=== PATIENT | male | born 1980 | race Caucasian/White ===

== ENCOUNTER 2021-06-17 05:03 | Emergency (ER) | payer OTHER ==
[2021-06-17 05:14] VITALS: RESP 18; TEMP 97.6
[2021-06-17] MEDS ORDERED: SODIUM CHLORIDE 0.9% 1,000 ML IV ONE (05:49)
[2021-06-17] MEDS ORDERED: SODIUM CHLORIDE 0.9% 1,000 ML IV STA (05:49)
[2021-06-17] MEDS ORDERED: LORazepam 2 MG/ML INJ IV STA (05:49)
[2021-06-17 06:27] LABS: Basophils # (A) 0.1 k/uL (0-0.2); Basophils % (A) 1 %; Eosinophils # (A) 0.3 k/uL (0-0.7); Eosinophils % (A) 3 %; HCT 47.9 % (39.0-53.0); HGB 16.1 gm/dL (13.0-17.5); Lymphocytes % (A) 19 %; MCH 31.8 pg (25.0-35.0); MCHC 33.6 g/dL (31.0-37.0); MCV 94.5 fL (80.0-100.0); Mean Platelet Volume 7.2; Monocytes # (A) 0.6 k/uL (0-1.0); Monocytes % (A) 5 %; Neutrophils # (A) 7.6 k/uL (1.3-7.7); Neutrophils % (A) 72 %; Platelet Count 346 k/uL (150-450); RBC 5.07 m/uL (4.30-5.90); RDW 12.3 % (11.5-15.5); WBC 10.6 k/uL (3.8-10.6)
[2021-06-17 06:49] LABS: ALT 43 U/L (4-49); AST 54 U/L (17-59); African American GFR (CKD) >90 (>60 ml/min/1.73 sqM); Albumin 4.4 g/dL (3.5-5.0); Alcohol 70 mg/dL; Alkaline Phosphatase 75 U/L (38-126); Anion Gap 10 mmol/L; Blood Urea Nitrogen 15 mg/dL (9-20); Calcium 9.8 mg/dL (8.4-10.2); Carbon Dioxide 24 mmol/L (22-30); Chloride 102 mmol/L (98-107); Glucose 103 mg/dL (74-99); Non-African American GFR(CKD) 90 (>60 ml/min/1.73 sqM); Potassium 4.7 mmol/L (3.5-5.1); Sodium 136 mmol/L (137-145); Total Bilirubin 0.4 mg/dL (0.2-1.3)
[2021-06-17 07:44] VITALS: BP 134/76; PULSE 96
--- NOTE | 2021-06-17 07:48 | ED ---
Alcohol HPI - General Chief Complaint: Alcohol Stated Complaint: Alcohol Time Seen by Provider: 06/17/21 05:42 Source: patient, EMS Mode of arrival: EMS Limitations: no limitations - History of Present Illness Initial Comments: 's patient is a 40-year-old man presents with complaint that he feels like she is withdrawing from alcohol. The patient states that he had been partying with friends [place]. They drink quite a bit and now he is trying to stop and becoming very shaky and tremulous. He is getting anxious when he stops drinking. MD Complaint: alcohol intoxication, alcohol withdrawal -: hour(s) Previous Visits for Alcohol Intoxication?: No Recent Trauma: No Associated Symptoms: nausea Treatments Prior to Arrival: none - Related Data Home Medications Medication Instructions Recorded Confirmed Omeprazole Magnesium [PriLOSEC OTC] 20 mg PO DAILY PRN 05/28/21 05/28/21 Previous Rx's Medication Instructions Recorded LORazepam [Ativan] 1 mg PO TID 3 Days #9 tab 06/17/21 Thiamine [Vitamin B-1] 100 mg PO DAILY #30 tablet 06/17/21 Allergies Allergy/AdvReac Type Severity Reaction Status Date / Time No Known Allergies Allergy Verified 05/28/21 22:26 Review of Systems ROS Statement: Those systems with pertinent positive or pertinent negative responses have been documented in the HPI. ROS Other: All systems not noted in ROS Statement are negative. Constitutional: Denies: fever, chills Respiratory: Denies: cough, dyspnea Cardiovascular: Reports: palpitations. Denies: chest pain, orthopnea, edema, syncope Gastrointestinal: Reports: nausea. Denies: abdominal pain, vomiting, diarrhea Genitourinary: Denies: dysuria, hematuria Musculoskeletal: Denies: back pain Skin: Denies: rash Neurological: Denies: headache, weakness, numbness Psychiatric: Denies: depression, suicidal thoughts Past Medical History Past Medical History: No Reported History Additional Past Medical History / Comment(s): substance abuse History of Any Multi-Drug Resistant Organisms: None Reported Past Surgical History: Orthopedic Surgery Additional Past Surgical History / Comment(s): Right ankle; Left ankle Past Psychological History: No Psychological Hx Reported Smoking Status: Current some day smoker Past Alcohol Use History: Abuse, Heavy, Occasional Past Drug Use History: Cocaine, Marijuana General Exam Limitations: no limitations General appearance: alert, in no apparent distress Head exam: Present: atraumatic, normocephalic Eye exam: Present: normal appearance. Absent: scleral icterus, conjunctival injection Respiratory exam: Present: normal lung sounds bilaterally. Absent: respiratory distress, wheezes, rales, rhonchi, stridor Cardiovascular Exam: Present: normal rhythm, tachycardia, normal heart sounds. Absent: systolic murmur, diastolic murmur, rubs, gallop GI/Abdominal exam: Present: soft. Absent: distended, tenderness, guarding, rebound, rigid, mass Extremities exam: Present: normal inspection, normal capillary refill. Absent: pedal edema, calf tenderness Back exam: Present: normal inspection. Absent: CVA tenderness (R), CVA tenderness (L) Neurological exam: Present: alert, oriented X3. Absent: motor sensory deficit Skin exam: Present: warm, dry, intact, normal color. Absent: rash Course Vital Signs 06/17/21 06/17/21 05:11 07:43 Temperature 97.6 F Pulse Rate 113 H 96 Respiratory 18 18 Rate Blood Pressure 142/110 134/76 O2 Sat by Pulse 96 100 Oximetry Medical Decision Making - Medical Decision Making Patient is 41-year-old man with mild alcohol withdrawal symptoms. Patient has had improvement with treatment here. He is quite knowledgeable about the medications used and the signs and symptoms related that withdrawal and would like to try to manage his own withdrawal at home. Discussed the risks and benefits associated and he will have close follow-up and return parameters discussed. - Lab Data Result diagrams: 06/17/21 05:55 06/17/21 05:55 Lab Results 06/17/21 06/17/21 Range/Units 05:55 05:55 WBC 10.6 (3.8-10.6) k/uL RBC 5.07 (4.30-5.90) m/uL Hgb 16.1 (13.0-17.5) gm/dL Hct 47.9 (39.0-53.0) % MCV 94.5 (80.0-100.0) fL MCH 31.8 (25.0-35.0) pg MCHC 33.6 (31.0-37.0) g/dL RDW 12.3 (11.5-15.5) % Plt Count 346 (150-450) k/uL MPV 7.2 Neutrophils % 72 % Lymphocytes % 19 % Monocytes % 5 % Eosinophils % 3 % Basophils % 1 % Neutrophils # 7.6 (1.3-7.7) k/uL Lymphocytes # 2.0 (1.0-4.8) k/uL Monocytes # 0.6 (0-1.0) k/uL Eosinophils # 0.3 (0-0.7) k/uL Basophils # 0.1 (0-0.2) k/uL Sodium 136 L (137-145) mmol/L Potassium 4.7 (3.5-5.1) mmol/L Chloride 102 (98-107) mmol/L Carbon Dioxide 24 (22-30) mmol/L Anion Gap 10 mmol/L BUN 15 (9-20) mg/dL Creatinine 1.04 (0.66-1.25) mg/dL Est GFR (CKD-EPI)AfAm >90 (>60 ml/min/1.73 sqM) Est GFR (CKD-EPI)NonAf 90 (>60 ml/min/1.73 sqM) Glucose 103 H (74-99) mg/dL Calcium 9.8 (8.4-10.2) mg/dL Total Bilirubin 0.4 (0.2-1.3) mg/dL AST 54 (17-59) U/L ALT 43 (4-49) U/L Alkaline Phosphatase 75 (38-126) U/L Total Protein 8.0 (6.3-8.2) g/dL Albumin 4.4 (3.5-5.0) g/dL Serum Alcohol 70 mg/dL Disposition Clinical Impression: Alcohol withdrawal syndrome Disposition: HOME SELF-CARE Condition: Good Instructions (If sedation given, give patient instructions): Alcohol Withdrawal (ED) Prescriptions: LORazepam [Ativan] 1 mg PO TID 3 Days #9 tab Thiamine [Vitamin B-1] 100 mg PO DAILY #30 tablet Is patient prescribed a controlled substance at d/c from ED?: No Referrals: None,Stated [Primary Care Provider] - 1-2 days
== END 2021-06-17 08:52 | disposition home or self-care (01) ==
LOC: EC 05:03
DX: F10.239 Alcohol dependence with withdrawal, unspecified (principal); F17.200 Nicotine dependence, unspecified, uncomplicated
CPT/HCPCS: 99285 ×2; 96374 ×2; 36415; 80053; 85025; 80320; J2060

== ENCOUNTER 2021-10-24 17:42 | Emergency (ER) | payer OTHER ==
[~2021-10-24 17:42] MED LIST: THIAMINE 100 MG TAB PO SCH
[2021-10-24 18:05] VITALS: TEMP 98
[2021-10-24] MEDS ORDERED: SODIUM CHLORIDE 0.9% 1,000 ML IV STA (18:38)
[2021-10-24] MEDS ORDERED: PANTOPRAZOLE 40 MG/10 ML VIAL IVP STA (18:39)
[2021-10-24] MEDS ORDERED: THIAMINE 100 MG/ML 2 ML VIAL IM STA (18:39)
[2021-10-24] MEDS ORDERED: LORazepam 2 MG/ML INJ IV PRN ×3 (18:39)
--- NOTE | 2021-10-24 18:45 | ED ---
General Adult HPI - General Chief complaint: Alcohol Stated complaint: ETOH withdrawals Time Seen by Provider: 10/24/21 18:25 Source: patient, RN notes reviewed, old records reviewed Mode of arrival: ambulatory Limitations: no limitations - History of Present Illness Initial comments: This is a pleasant 41-year-old male that presents to the emergency room with alcohol withdrawal. Patient states that he drank about half a gallon of vodka and then he went to the bar drinking tequila last night. Please unsure what time he was driven home. Patient states that he does have a binge drinking problem and was in rehab in December 2019 placed on vivitrol. He is interested in getting rehab again. He denies any suicidal or homicidal ideations. No halluc inations. He does feel very shaky and anxious. He has a headache with nausea but no vomiting. He states he has also been doing cocaine but quit 2 days ago. He also has a history of LSD use in February of last year while in [facility]. He states that he drinks mainly because of relationship issues. Alcohol abuse does run in his family he states. -: days(s) (1) Location: head Severity scale (1-10): 10 Quality: aching Consistency: constant Improves with: none Associated Symptoms: headaches, nausea/vomiting (no vomiting), other (anxiety) Treatments Prior to Arrival: other (zofran) - Related Data Previous Rx's Medication Instructions Recorded Ondansetron Odt [Zofran Odt] 8 mg PO Q8HR PRN #30 tab 08/17/21 Thiamine [Vitamin B-1] 100 mg PO BID-W/MEALS 30 Days #60 08/17/21 tab chlordiazePOXIDE HCl [Librium] 25 mg PO TID #30 capsule 10/24/21 Allergies Allergy/AdvReac Type Severity Reaction Status Date / Time alcohol Allergy Itching Verified 10/24/21 18:05 [From Mastisol Liquid Adhesive] gum mastic Allergy Itching Verified 10/24/21 18:05 [From Mastisol Liquid Adhesive] methyl salicylate Allergy Itching Verified 10/24/21 18:05 [From Mastisol Liquid Adhesive] storax Allergy Itching Verified 10/24/21 18:05 [From Mastisol Liquid Adhesive] Review of Systems ROS Statement: Those systems with pertinent positive or pertinent negative responses have been documented in the HPI. ROS Other: All systems not noted in ROS Statement are negative. Past Medical History Past Medical History: No Reported History Additional Past Medical History / Comment(s): substance abuse History of Any Multi-Drug Resistant Organisms: None Reported Past Surgical History: Orthopedic Surgery Additional Past Surgical History / Comment(s): Right ankle; Left ankle Past Anesthesia/Blood Transfusion Reactions: No Reported Reaction Past Psychological History: No Psychological Hx Reported Smoking Status: Light tobacco smoker Past Alcohol Use History: Abuse, Heavy, Occasional Past Drug Use History: Cocaine - Past Family History Mother Family Medical History: No Reported History General Exam Limitations: no limitations General appearance: alert, in no apparent distress Head exam: Present: atraumatic Eye exam: Present: normal appearance. Absent: scleral icterus, conjunctival injection, periorbital swelling, periorbital tenderness ENT exam: Present: mucous membranes moist, other (large uvula) Neck exam: Present: normal inspection, full ROM. Absent: meningismus Respiratory exam: Present: normal lung sounds bilaterally. Absent: respiratory distress, accessory muscle use Cardiovascular Exam: Present: regular rate, normal heart sounds. Absent: JVD GI/Abdominal exam: Present: soft. Absent: distended, tenderness Extremities exam: Present: normal capillary refill. Absent: pedal edema Back exam: Present: normal inspection, full ROM. Absent: tenderness, CVA tenderness (R), CVA tenderness (L), rash noted Neurological exam: Present: alert, oriented X3, normal gait Psychiatric exam: Present: anxious Skin exam: Present: warm, dry, normal color. Absent: cyanosis, diaphoretic, petechiae, pallor Course Vital Signs 10/24/21 10/24/21 18:00 20:51 Temperature 98.0 F Pulse Rate 98 84 Respiratory 20 18 Rate Blood Pressure 152/98 147/99 O2 Sat by Pulse 98 99 Oximetry Medical Decision Making - Medical Decision Making Patient is feeling better after the IV Ativan. He was offered and accepted a prescription for a Librium taper. He was instructed to stop drinking alcohol and doing drugs. He was advised of the side effects of Librium being drowsiness, tiredness, dizziness and blurred vision and directed not to drive until he knows how Librium is affecting him. According to MAPS patient was last prescribed Librium 05/14/2021. Case discussed with Dr. Freeman - Lab Data Result diagrams: 10/24/21 18:52 10/24/21 18:52 Lab Results 10/24/21 10/24/21 10/24/21 Range/Units 18:52 18:52 18:52 WBC 7.0 (3.8-10.6) k/uL RBC 4.89 (4.30-5.90) m/uL Hgb 15.0 (13.0-17.5) gm/dL Hct 49.1 (39.0-53.0) % MCV 100.4 H (80.0-100.0) fL MCH 30.7 (25.0-35.0) pg MCHC 30.6 L (31.0-37.0) g/dL RDW 12.4 (11.5-15.5) % Plt Count 411 (150-450) k/uL MPV 6.9 Neutrophils % 67 % Lymphocytes % 21 % Monocytes % 7 % Eosinophils % 1 % Basophils % 2 % Neutrophils # 4.7 (1.3-7.7) k/uL Lymphocytes # 1.5 (1.0-4.8) k/uL Monocytes # 0.5 (0-1.0) k/uL Eosinophils # 0.1 (0-0.7) k/uL Basophils # 0.1 (0-0.2) k/uL PT 11.1 (9.0-12.0) sec INR 1.0 (<1.2) Sodium (137-145) mmol/L Potassium (3.5-5.1) mmol/L Chloride (98-107) mmol/L Carbon Dioxide (22-30) mmol/L Anion Gap mmol/L BUN (9-20) mg/dL Creatinine (0.66-1.25) mg/dL Est GFR (CKD-EPI)AfAm (>60 ml/min/1.73 sqM) Est GFR (CKD-EPI)NonAf (>60 ml/min/1.73 sqM) Glucose (74-99) mg/dL Calcium (8.4-10.2) mg/dL Magnesium (1.6-2.3) mg/dL Total Bilirubin (0.2-1.3) mg/dL AST (17-59) U/L ALT (4-49) U/L Alkaline Phosphatase (38-126) U/L Total Protein (6.3-8.2) g/dL Albumin (3.5-5.0) g/dL Amylase (30-110) U/L Lipase (23-300) U/L Urine Color Yellow Urine Appearance Cloudy (Clear) Urine pH 8.5 H (5.0-8.0) Ur Specific Freeman 1.026 (1.001-1.035) Urine Protein Trace H (Negative) Urine Glucose (UA) Negative (Negative) Urine Ketones Negative (Negative) Urine Blood Negative (Negative) Urine Nitrite Negative (Negative) Urine Bilirubin Negative (Negative) Urine Urobilinogen <2.0 (<2.0) mg/dL Ur Leukocyte Esterase Negative (Negative) Urine RBC 1 (0-5) /hpf Urine WBC <1 (0-5) /hpf Amorphous Sediment Rare H (None) /hpf Urine Mucus Rare H (None) /hpf Urine Opiates Screen Not Detected (NotDetected) Ur Oxycodone Screen Not Detected (NotDetected) Urine Methadone Screen Not Detected (NotDetected) Ur Propoxyphene Screen Not Detected (NotDetected) Ur Barbiturates Screen Not Detected (NotDetected) U Tricyclic Antidepress Not Detected (NotDetected) Ur Phencyclidine Scrn Not Detected (NotDetected) Ur Amphetamines Screen Not Detected (NotDetected) U Methamphetamines Scrn Not Detected (NotDetected) U Benzodiazepines Scrn Not Detected (NotDetected) Urine Cocaine Screen Detected H (NotDetected) U Marijuana (THC) Screen Not Detected (NotDetected) Serum Alcohol mg/dL 10/24/21 Range/Units 18:52 WBC (3.8-10.6) k/uL RBC (4.30-5.90) m/uL Hgb (13.0-17.5) gm/dL Hct (39.0-53.0) % MCV (80.0-100.0) fL MCH (25.0-35.0) pg MCHC (31.0-37.0) g/dL RDW (11.5-15.5) % Plt Count (150-450) k/uL MPV Neutrophils % % Lymphocytes % % Monocytes % % Eosinophils % % Basophils % % Neutrophils # (1.3-7.7) k/uL Lymphocytes # (1.0-4.8) k/uL Monocytes # (0-1.0) k/uL Eosinophils # (0-0.7) k/uL Basophils # (0-0.2) k/uL PT (9.0-12.0) sec INR (<1.2) Sodium 134 L (137-145) mmol/L Potassium 4.8 (3.5-5.1) mmol/L Chloride 99 (98-107) mmol/L Carbon Dioxide 26 (22-30) mmol/L Anion Gap 9 mmol/L BUN 9 (9-20) mg/dL Creatinine 0.86 (0.66-1.25) mg/dL Est GFR (CKD-EPI)AfAm >90 (>60 ml/min/1.73 sqM) Est GFR (CKD-EPI)NonAf >90 (>60 ml/min/1.73 sqM) Glucose 104 H (74-99) mg/dL Calcium 9.6 (8.4-10.2) mg/dL Magnesium 1.6 (1.6-2.3) mg/dL Total Bilirubin 0.8 (0.2-1.3) mg/dL AST 34 (17-59) U/L ALT 30 (4-49) U/L Alkaline Phosphatase 44 (38-126) U/L Total Protein 7.3 (6.3-8.2) g/dL Albumin 4.2 (3.5-5.0) g/dL Amylase 64 (30-110) U/L Lipase 80 (23-300) U/L Urine Color Urine Appearance (Clear) Urine pH (5.0-8.0) Ur Specific Freeman (1.001-1.035) Urine Protein (Negative) Urine Glucose (UA) (Negative) Urine Ketones (Negative) Urine Blood (Negative) Urine Nitrite (Negative) Urine Bilirubin (Negative) Urine Urobilinogen (<2.0) mg/dL Ur Leukocyte Esterase (Negative) Urine RBC (0-5) /hpf Urine WBC (0-5) /hpf Amorphous Sediment (None) /hpf Urine Mucus (None) /hpf Urine Opiates Screen (NotDetected) Ur Oxycodone Screen (NotDetected) Urine Methadone Screen (NotDetected) Ur Propoxyphene Screen (NotDetected) Ur Barbiturates Screen (NotDetected) U Tricyclic Antidepress (NotDetected) Ur Phencyclidine Scrn (NotDetected) Ur Amphetamines Screen (NotDetected) U Methamphetamines Scrn (NotDetected) U Benzodiazepines Scrn (NotDetected) Urine Cocaine Screen (NotDetected) U Marijuana (THC) Screen (NotDetected) Serum Alcohol <10 mg/dL Disposition Clinical Impression: Polysubstance abuse, Alcohol withdrawal Disposition: HOME SELF-CARE Condition: Good Instructions (If sedation given, give patient instructions): Alcohol Withdrawal (ED) Additional Instructions: Take the Librium as prescribed and follow-up with rehab center next week. Librium side effects can include drowsiness, dizziness and may cause blurred vision so do not drive or operate heavy machinery when taking this medication until you know how it makes you feel. Prescriptions: chlordiazePOXIDE HCl [Librium] 25 mg PO TID #30 capsule Is patient prescribed a controlled substance at d/c from ED?: Yes When asked, does pt state using other controlled substances?: No If prescribed controlled substance>3 days was MAPS reviewed?: Yes Referrals: None,Stated [Primary Care Provider] - 1-2 days Time of Disposition: 20:36
[2021-10-24] MEDS ORDERED: ONDANSETRON 4 MG/2 ML VIAL IVP STA (19:03)
[2021-10-24] MEDS ORDERED: ACETAMINOPHEN TAB 500 MG TAB PO STA (19:03)
[2021-10-24 19:06] LABS: Basophils # (A) 0.1 k/uL (0-0.2); Basophils % (A) 2 %; Eosinophils # (A) 0.1 k/uL (0-0.7); Eosinophils % (A) 1 %; HCT 49.1 % (39.0-53.0); Lymphocytes # (A) 1.5 k/uL (1.0-4.8); Lymphocytes % (A) 21 %; MCH 30.7 pg (25.0-35.0); MCHC 30.6 g/dL (31.0-37.0); MCV 100.4 fL (80.0-100.0); Mean Platelet Volume 6.9; Monocytes # (A) 0.5 k/uL (0-1.0); Monocytes % (A) 7 %; Neutrophils # (A) 4.7 k/uL (1.3-7.7); Neutrophils % (A) 67 %; Platelet Count 411 k/uL (150-450); RBC 4.89 m/uL (4.30-5.90); RDW 12.4 % (11.5-15.5)
[2021-10-24 19:15] LABS: Prothrombin Time 11.1 sec (9.0-12.0)
[2021-10-24 19:17] LABS: ALT 30 U/L (4-49); African American GFR (CKD) >90 (>60 ml/min/1.73 sqM); Albumin 4.2 g/dL (3.5-5.0); Alcohol <10 mg/dL; Amylase 64 U/L (30-110); Anion Gap 9 mmol/L; Blood Urea Nitrogen 9 mg/dL (9-20); Calcium 9.6 mg/dL (8.4-10.2); Carbon Dioxide 26 mmol/L (22-30); Chloride 99 mmol/L (98-107); Glucose 104 mg/dL (74-99); Lipase 80 U/L (23-300); Non-African American GFR(CKD) >90 (>60 ml/min/1.73 sqM); Sodium 134 mmol/L (137-145); Total Bilirubin 0.8 mg/dL (0.2-1.3); Total Protein 7.3 g/dL (6.3-8.2)
[2021-10-24 19:18] LABS: AST 34 U/L (17-59); Alkaline Phosphatase 44 U/L (38-126); Magnesium 1.6 mg/dL (1.6-2.3); Potassium 4.8 mmol/L (3.5-5.1)
[2021-10-24 20:15] LABS: Amorphous Sediment,Urine Rare /hpf; Appearance,Urine Cloudy (Clear); Bilirubin,Urine Negative (Negative); Blood,Urine Negative (Negative); Color,Urine Yellow; Glucose,Urine (UA) Negative (Negative); Ketones,Urine Negative (Negative); Leukocyte Esterase,Urine Negative (Negative); Mucus,Urine Rare /hpf; Nitrite,Urine Negative (Negative); PH, Urine 8.5 (5.0-8.0); Protein,Urine Trace (Negative); RBC,Urine 1 /hpf (0-5); Specific Gravity,Urine 1.026 (1.001-1.035); Urobilinogen,Urine <2.0 mg/dL (<2.0); WBC,Urine <1 /hpf (0-5)
[2021-10-24 20:17] LABS: Amphetamine Screen,Urine Not Detected (NotDetected); Barbiturate Screen,Urine Not Detected (NotDetected); Benzodiazepines Screen,Urine Not Detected (NotDetected); Cocaine Screen,Urine Detected (NotDetected); Methadone Screen, Urine Not Detected (NotDetected); Opiate Screen,Urine Not Detected (NotDetected); Oxycodone Screen, Urine Not Detected (NotDetected); Phencyclidine Screen,Urine Not Detected (NotDetected); Tricyclic Antidepressant,Urine Not Detected (NotDetected); Urn Cannabinoid Scrn Not Detected (NotDetected)
[2021-10-24 20:52] VITALS: BP 147/99; PULSE 84; RESP 18
== END 2021-10-24 21:22 | disposition home or self-care (01) ==
LOC: EC 17:42
DX: F10.239 Alcohol dependence with withdrawal, unspecified (principal); F19.10 Other psychoactive substance abuse, uncomplicated; F17.209 Nicotine dependence, unspecified, with unspecified nicotine-induced disorders; Z91.048 Other nonmedicinal substance allergy status; Z91.018 Allergy to other foods; Z88.6 Allergy status to analgesic agent; Z88.8 Allergy status to other drugs, medicaments and biological substances
CPT/HCPCS: 99284; 96374; 96361 ×2; 96375; 96376; 96372; 36415; 80053; 82150; 83690; 83735; 85025; 85610; 81001; 80306; 80320; J2060; J3411; J2405; C9113